=== PATIENT | female | born 1970 | race Caucasian/White ===

== ENCOUNTER 2022-10-10 05:58 | Emergency (ER) | payer MEDICARE ==
[~2022-10-10] VITALS: Ht 175.3 cm; Wt 86.2 kg
[2022-10-10 06:07] VITALS: BP 125/90
--- NOTE | 2022-10-10 06:07 | NUR ---
BIBS R RING FINGER LAC HAPPENED 4PM YESTERDAY
--- NOTE | 2022-10-10 06:17 | NUR ---
EMT AT BEDSIDE TO CLEAN FINGER
[2022-10-10] MEDS ORDERED: GELATIN SPONGE,ABSORBABLE 1 SPONGE SPONGE TP ONE (06:33)
--- NOTE | 2022-10-10 06:42 | NUR ---
Patient discharged to home in stable condition. Written and verbal after care instructions given. Patient verbalizes understanding of instruction.
[2022-10-10] MEDS ORDERED: BACI/NEOM/POLY B OINT PKT 1 UDPKT PACKET TP ONE (07:00)
== END 2022-10-10 06:42 | disposition home or self-care (01) ==
LOC: ER 06:01
DX: S61.304A Unspecified open wound of right ring finger with damage to nail, initial encounter (principal); W26.8XXA Contact with other sharp object(s), not elsewhere classified, initial encounter; Y93.89 Activity, other specified; Y92.89 Other specified places as the place of occurrence of the external cause; Y99.8 Other external cause status